=== PATIENT | male | born 1955 | race Caucasian/White ===

== ENCOUNTER → 2018-03-31 10:16 | Outpatient (CLI) | payer OTHER, MEDICAID, SELFPAY ==
--- NOTE | 2018-03-31 | DI.RAD.S_ITS ---
PROCEDURE: XR HAND RT 2V INDICATIONS: RIGHT WRIST AND HAND PAIN - NO INJURY TECHNIQUE: 3 views of the hand(s) acquired. COMPARISON: [facility], CR, XR WRIST RT MIN 3V, 03/31/2018, 9:59. [facility], CR, HAND 3V LEFT, 02/08/2016, 10:32. None. FINDINGS: Bones: No fractures or dislocations. Carpal bones are normally aligned. No suspicious bony lesions. There is mild first metacarpophalangeal joint degeneration. Soft tissues: No suspicious soft tissue calcifications. 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 Dictated by: Valentin Ruiz M.D. on 03/31/2018 at 16:25 Approved by: Valentin Ruiz M.D. on 03/31/2018 at 16:28
--- NOTE | 2018-03-31 | DI.RAD.S_ITS ---
PROCEDURE: XR WRIST RT MIN 3V INDICATIONS: RIGHT HAND AND WRIST PAIN - NO INJURY TECHNIQUE: 4 views of the wrist were acquired. COMPARISON: None. FINDINGS: Bones: No fractures or dislocations. No suspicious bony lesions. Scaphoid view: Scaphoid is normal. Soft tissues: No suspicious soft tissue calcifications. IMPRESSION: Normal right wrist x-ray. Dictated by: Valentin Ruiz M.D. on 03/31/2018 at 16:24 Approved by: Valentin Ruiz M.D. on 03/31/2018 at 16:24
== END ==
PROVIDERS: Family Provider Physician Assistant; PCP Physician Assistant; Visit Provider Physician Assistant
DX: M65.311 Trigger thumb, right thumb (principal); M79.641 Pain in right hand; M19.041 Primary osteoarthritis, right hand
CPT/HCPCS: 73110; 73130